=== PATIENT | female | born 1925 | race Caucasian/White ===

== ENCOUNTER → 2016-06-12 | Outpatient (CLI) | payer MEDICARE, OTHER ==
[~2016-06-12] MED LIST: ALN70T PO; ANAS1TAB7 PO; ANASTROZOLE; ARIMIDEX 1 MG; ASPI-892; ATOR10TA66 PO; ATRV10T; ATRV10T PO; B-12 INJECTION; CALTRATE 600 +1 EACH PO; CEPH500C PO; CHOL2000 PO; CYAN100053 IJ; DENO60DI SQ; DIGO125T PO; DIGO125T91 PO; ERGO400C PO; HYDR-3729 PO; HYDR-3812 PO; HYDR1TAB PO; LEVO75TA PO; LEVO75TA57; LEVO75TA57 PO; LEVO88TA54 PO; METO50TA7; MTP25TSR; POLI10TA; RIVA15TA PO; VERA120T6 PO; WRF2.5T PO; WRF5T PO; [UNRECOGNIZED DRUG - OTHER]
--- OUTSIDE RECORDS SUMMARY | 2016-06-12 10:20 | XMS REPORT | Continuity of Care Document ---
Author Author [facility] Organization [facility] Address Unknown Phone Unavailable Care Team Providers Care Pipelayer Name Role Phone CARLI JOSUE DO PCP Insurance Providers Payer Name Policy Number Subscriber Name Relationship Wps Medicare [id number] Lori Garcia 18 Self / Same As Patient [facility] [id number] Lori Garcia 20 Self / Same As Patient Advance Directives Directive Response Recorded Date/Time Advance Directives Yes 03/23/15 7:39am Health Care Power of Psychology Department Chair Y FER 03/23/15 7:39am Organ Donor No [...] Type Severity Reaction Status Last Updated piroxicam ([id number]) Allergy Mild Hives Active 05/31/07 simvastatin ([id number]) Adverse Reaction Mild Abdominal Pain Active 05/31 diltiazem ([id number]) Allergy Unknown Active 09/28/13 Immunizations No immunization [...] Discharge/Depart Date Attending Provider Discharged Recurring [facility] 11/28/15 9:53am 11:59pm NICOLE RIOS
--- NOTE | 2016-06-12 15:20 | Diagnostic Imaging Report ---
EXAM: DEXA scan. INDICATION: Screening for osteoporosis. FINDINGS: The study was compared to the prior exam of 05/18/14. The bone mineral density of the hips and spine was measured. The T score for the spine is -0.7. On the prior exam the T score was -0.8. The T score for the left hip is -2.6 and for the right hip -2.3. On the prior exam the respective T. scores were -2.7and -2.2. IMPRESSION: When compared to the previous study, there does not appear to have been any significant change. The T score for the spine remains within normal limits. 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 Dictated by: Dictated on workstation # [id number]
--- NOTE | 2016-06-12 19:23 | Diagnostic Imaging Report ---
INDICATION: Screening. 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 At this time there are no current complaints. EXAMINATION: Bilateral digital screening mammogram with CAD. The current study was also evaluated with a Computer Aided Detection (CAD) system. COMPARISON: This study was compared to the prior exams of 05/21/15, 05/18/14, 05/13/13 and 01/18/13. FINDINGS: The postsurgical changes involving the right breast, seen previously, are again evident and no different. There is no sign of recurrent malignancy on the right. The fibroglandular tissue in both breasts is heterogeneously dense. This does limit the sensitivity of this exam. When compared to the previous study, there does not appear to have been any significant change. There is no primary or secondary sign of malignancy noted. IMPRESSION: The post lumpectomy changes in the right breast are stable. There is no evidence for malignancy involving either breast. ACR BI-RADS Category 1: Negative. Result letter will be mailed to the patient. Note: At least 10% of breast cancer is not imaged by mammography. Dictated by: Dictated on workstation # [id number]
== END ==
LOC: RAD 10:17
PROVIDERS: ATTEND Nurse Practitioner Adult Health
DX: Z12.31 Encounter for screening mammogram for malignant neoplasm of breast (principal); C50.411 Malignant neoplasm of upper-outer quadrant of right female breast; M81.0 Age-related osteoporosis without current pathological fracture; N18.3 Chronic kidney disease, stage 3 (moderate)
CPT/HCPCS: 77067; 77080

== ENCOUNTER 2016-07-10 10:15 | Outpatient (RCR) | payer MEDICARE, OTHER ==
--- OUTSIDE RECORDS SUMMARY | 2016-05-29 10:37 | XMS REPORT | Continuity of Care Document ---
Author Author [facility] Organization [facility] Address Unknown Phone Unavailable Care Team Providers Care Waste Removalist Name Role Phone CARLI JOSUE DO PCP Insurance Providers Payer Name Policy Number Subscriber Name Relationship Wps Medicare [id number] Lori Garcia 18 Self / Same As Patient [facility] [id number] Lori Garcia 18 Self / Same As Patient Advance Directives Directive Response Recorded Date/Time Advance Directives Yes 03/23/15 7:39am Health Care Power of Anvil Worker Y FER 03/23/15 7:39am Organ Donor No 03/23/15 7:39am Problems Active Problems Medical Problem Onset Date Status Diarrhea Unknown Acute Generalized weakness Unknown Acute Hypovolemia Unknown Acute Laceration of finger Unknown Acute Paroxysmal atrial fibrillation Unknown Acute Syncope and collapse Unknown Acute Medications Current Home Medications Medication Dose Units Route Directions Days/Qty Instructions Start Date Cyanocobalamin (Vitamin B 12 Injecting) 1,000 Mcg/Ml 1 Ml Injection Monthly 10/31/10 Calcium Carbonate/Vitamin D3 1 Each 1 Tab Oral Twice A Day 10/31/10 Rivaroxaban 15 Mg 15 Mg Oral Bedtime 06/09/13 Digoxin 125 Mcg 125 Mcg Oral Daily 12/04/14 Cholecalciferol (Vitamin D3) 2,000 Unit 2,000 Unit Oral Daily Denosumab 60 Mg/1 Ml 60 Mg Sub-Q Twice A Year TAKE IN APRIL AND 12/04/14 Levothyroxine Sodium 75 Mcg 75 Mcg Oral Daily 03/23/15 Atorvastatin Calcium 10 Mg 10 Mg Oral Bedtime 03/23/15 Levothyroxine Sodium 88 Mcg 0 Mcg Oral Daily@0630 30 03/26/15 Past Home Medications Medication Directions Ordered Status Metoprolol Succinate 50 Mg Tab, 08/03/08 Discontinued Levothyroxine Sodium 75 Mcg Tablet, 08/03/08 Discontinued Policosanol 10 Mg Tablet, 08/03/08 Discontinued [B-12 Injection] , 08/03/08 Discontinued [Arimidex- For Cancer] 1 Gm , 08/03/08 Discontinued Acetaminophen/Hydrocodone Bitart 1 Each Tablet, 1 - 2 Each Oral Q4hr Prn 03/01 Discontinued Metoprolol Succinate (Metoprolol Er 25MG) 25 Mg Tab, 08/16/08 Discontinued Atorvastatin Calcium 10 Mg Tablet, 08/16/08 Discontinued Aspirin 81 Mg Tablet., 08/16/08 Discontinued [B12 Ing] , 08/16/08 Discontinued [Arimidex 1MG] , 08/16/08 Discontinued Verapamil Hcl 120 Mg Tablet, 1 Ea Oral Daily 01/11/10 Discontinued Warfarin Sodium 5 Mg Tablet, 1 Each Oral Daily 01/11/10 Discontinued Warfarin Sodium 2.5 Mg Tab, 2.5 Mg Oral Daily 01/11/10 Discontinued Alendronate Sodium 70 Mg Tab, 70 Mg Oral Mo@06 01/11/10 Discontinued Anastrozole 1 Mg Tablet, 1 Mg Oral Daily 10/31/10 Discontinued Digoxin 0.125 Mg Tab, 1 Each Oral Daily 10/31/10 Discontinued Atorvastatin Calcium 10 Mg Tablet, 10 Mg Oral Bedtime 10/31/10 Discontinued Levothyroxine Sodium 75 Mcg Tablet, 75 Mcg Oral Daily 10/31/10 Discontinued Warfarin Sodium 5 Mg Tablet, 1 Each Oral Daily 10/31/10 Discontinued Warfarin Sodium 2.5 Mg Tab, 2.5 Mg Oral Saturdays10/31/10 Discontinued Cholecalciferol 400 Unit Capsule, 2 Tab Oral Daily 10/31/10 Discontinued Cephalexin Monohydrate (Keflex) 500 Mg Capsule, 1 Each Oral Three Times A Day 06/09/13 Discontinued Hydrocodone/Acetaminophen 1 Each Tablet, 1 Each Oral Every 6 Hours as needed for 10 12/11/14 Discontinued Social History Social History Problem Response Recorded Date/Time Alcohol Use Denies Use 03/23/2015 7:39am Recreational Drug Use No 03/23/2015 7:39am Recent Foreign Travel SEE [place] 11/21/2015 12:09pm Sexually Transmitted Disease No 03/23/2015 7:39am Sexually Transmitted Disease No 03/23/2015 7:39am Hx Sexually Transmitted Disorders No 11/05/2010 6:58am Hospital Discharge Instructions No hospital discharge instructions. Plan of Care Prescriptions See Medication Section Functional Status No functional status results. Allergies, Adverse Reactions, Alerts Allergen Type Severity Reaction Status Last Updated piroxicam ([id number]) Allergy Mild Hives Active 05/31/07 simvastatin ([id number]) Adverse Reaction Mild Abdominal Pain Active 05/31 diltiazem ([id number]) Allergy Unknown Active 09/28/13 Immunizations No immunization records. Vital Signs No known vital signs results. Results Laboratory Results Test Name Result Units Flags Reference Collection Date/Time Result Date/ Time Comments White Blood Count 7.8 10^3/uL 4.3-11.0 11/28/2015 10:11/28/2015 10 :10am Red Blood Count 4.17 10^6/uL L 4.35-5.85 11/28/2015 10:11/28/2015 10 :10am Hemoglobin 12.9 G/DL 11.5-16.0 11/28/2015 10:11/28/2015 10:10am Hematocrit 41 % 35-52 11/28/2015 10:11/28/2015 10:10am Mean Corpuscular Volume 98 FL 80-99 11/28/2015 10:11/28/2015 10: 10am Mean Corpuscular Hemoglobin 31 PG 25-34 11/28/2015 10:11/28/2015 10:10am Mean Corpuscular Hemoglobin Concent 32 G/DL 32-36 11/28/2015 10: 10:10am Red Cell Distribution Width 14.4 % 10.0-14.5 11/28/2015 10:2015 10:10am Platelet Count 246 10^3/uL 130-400 11/28/2015 10:11/28/2015 10: 10am Mean Platelet Volume 9.7 FL 7.4-10.4 11/28/2015 10:11/28/2015 10: 10am Neutrophils (%) (Auto) 78 % H 42-75 11/28/2015 10:11/28/2015 10: 10am Lymphocytes (%) (Auto) 13 % 12-44 11/28/2015 10:0111/28/2015 10: 10am Monocytes (%) (Auto) 8 % 0-12 11/28/2015 10:0111/28/2015 10:10am Eosinophils (%) (Auto) 1 % 0-10 11/28/2015 10:0111/28/2015 10:10am Basophils (%) (Auto) 1 % 0-10 11/28/2015 10:0111/28/2015 10:10am Neutrophils # (Auto) 6.1 X 10^3 1.8-7.8 11/28/2015 10:0111/28/2015 10:10am Lymphocytes # (Auto) 1.0 X 10^3 1.0-4.0 11/28/2015 10:0111/28/2015 10:10am Monocytes # (Auto) 0.6 X 10^3 0.0-1.0 11/28/2015 10:0111/28/2015 10: 10am Eosinophils # (Auto) 0.1 10^3/uL 0.0-0.3 11/28/2015 10:0111/28/2015 10:10am Basophils # (Auto) 0.1 10^3/uL 0.0-0.1 11/28/2015 10:0111/28/2015 10 :10am Sodium Level 141 MMOL/L 135-145 11/28/2015 10:0111/28/2015 10:35am Potassium Level 4.3 MMOL/L 3.6-5.0 11/28/2015 10:0111/28/2015 10: 35am Chloride Level 107 MMOL/L 98-107 11/28/2015 10:0111/28/2015 10:35am Carbon Dioxide Level 26 MMOL/L 21-32 11/28/2015 10:0111/28/2015 10: 35am Anion Gap 8 MMOL/L 5-14 11/28/2015 10:0111/28/2015 10:35am Blood Urea Nitrogen 11 MG/DL 7-18 11/28/2015 10:0111/28/2015 10: 35am Creatinine 0.97 MG/DL 0.60-1.30 11/28/2015 10:01am 11/28/2015 10:35am BUN/Creatinine Ratio 11 11/28/2015 10:01am 11/28/2015 10:35am Estimat Glomerular Filtration Rate 54 11/28/2015 10:012015 10:35am GFR INTERPRETIVE DATA UNITS FOR ESTIMATED GFR (eGFR): mL/min/1.73 M2 REFERENCE RANGE FOR ESTIMATED GFR (eGFR) eGFR NORMAL eGFR >60 MODERATELY DECREASED eGFR 30-59 SEVERLY DECREASED eGFR 15-29 KIDNEY FAILURE <15 (OR DIALYSIS) Glucose Level 104 MG/DL 70-105 11/28/2015 10:01am 11/28/2015 10:35am Calcium Level 9.4 MG/DL 8.5-10.1 11/28/2015 10:0111/28/2015 10:35am Total Bilirubin 0.7 MG/DL 0.1-1.0 11/28/2015 10:01am 11/28/2015 10: 35am Alkaline Phosphatase 44 U/L 40-136 11/28/2015 10:01am 11/28/2015 10: 35am Aspartate Amino Transf (AST/SGOT) 14 U/L 5-34 11/28/2015 10:01am 2015 10:35am Alanine Aminotransferase (ALT/SGPT) 12 U/L 0-55 11/28/2015 10:01am 01/2016 10:35am Total Protein 6.6 G/DL 6.4-8.2 11/28/2015 10:01am 11/28/2015 10:35am Albumin 3.9 G/DL 3.2-4.5 11/28/2015 10:01am 11/28/2015 10:35am Procedures No known history of procedures. Encounters Encounter Location Arrival/Admit Date Discharge/Depart Date Attending Provider Discharged [facility] 11/28/15 9:53am 11:59pm NICOLE RIOS
[2016-05-29 11:01] LABS: BASOPHILS % (AUTO) 1 % (0-10); EOSINOPHILS # (AUTO) 0.1 10^3/uL (0.0-0.3); EOSINOPHILS % (AUTO) 1 % (0-10); LYMPHOCYTES # (AUTO) 1.1 X 10^3 (1.0-4.0); LYMPHOCYTES % (AUTO) 16 % (12-44); MEAN CORPUSCULAR HEMOGLOBIN 31 PG (25-34); MEAN CORPUSCULAR HGB CONC 32 G/DL (32-36); MEAN CORPUSCULAR VOLUME 99 FL (80-99); MEAN PLATELET VOLUME 9.7 FL (7.4-10.4); MONOCYTES # (AUTO) 0.5 X 10^3 (0.0-1.0); MONOCYTES % (AUTO) 7 % (0-12); NEUTROPHILS # (AUTO) 5.2 X 10^3 (1.8-7.8); NEUTROPHILS % (AUTO) 76 % (42-75); PLATELET COUNT 237 10^3/uL (130-400); RED BLOOD COUNT 4.17 10^6/uL (4.35-5.85); RED CELL DISTRIBUTION WIDTH 14.6 % (10.0-14.5); WHITE BLOOD COUNT 6.9 10^3/uL (4.3-11.0)
[2016-05-29 11:42] LABS: BILIRUBIN,TOTAL 0.7 MG/DL (0.1-1.0); CALCIUM 9.3 MG/DL (8.5-10.1); CREATININE SERUM 1.05 MG/DL (0.60-1.30); TOTAL PROTEIN 6.8 G/DL (6.4-8.2)
[~2016-07-10 10:15] MED LIST changes: +DENOSUMAB 60 MG/1 ML (PROLIA) CANCER CTR SQ SCH; -HYDR-3812 PO
[2016-08-22] MEDS ORDERED: CEPH500C PO (13:18)
[2016-08-23] MEDS ORDERED: HYDR-3812 PO (10:05)
== END 2016-08-27 | disposition home or self-care (01) ==
LOC: ONC 10:15
PROVIDERS: ATTEND Internal Medicine Hematology & Oncology
DX: M81.0 Age-related osteoporosis without current pathological fracture (principal); Z85.3 Personal history of malignant neoplasm of breast; I12.9 Hypertensive chronic kidney disease with stage 1 through stage 4 chronic kidney disease, or unspecified chronic kidney disease; N18.3 Chronic kidney disease, stage 3 (moderate); E03.9 Hypothyroidism, unspecified; I48.2 Chronic atrial fibrillation; Z79.01 Long term (current) use of anticoagulants; Z79.899 Other long term (current) drug therapy
CPT/HCPCS: 36415; 80053; 85025; 96372; 99213

== ENCOUNTER → 2016-07-28 | Outpatient (CLI) | payer MEDICARE, OTHER ==
[~2016-07-28] MED LIST changes: +CATHETER FLUSH 10 ML SYR IV PRN; -DENOSUMAB 60 MG/1 ML (PROLIA) CANCER CTR SQ SCH; +HYDR-3812 PO
--- NOTE | 2016-07-28 19:14 | Diagnostic Imaging Report ---
EXAMINATION: Three-phase bone scan. 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 History of prior amputations. TECHNIQUE: After the intravenous administration of 26.2 mCi of Technetium 99m MDP, flow images, blood pool and delayed bone scan images over both feet were obtained. FINDINGS: There is a triphasic moderate to severe intense increased activity in the first metatarsophalangeal joint region. It is probably involving both the base of the proximal phalanx and the head of the first metatarsal bone on the right side. No other significant abnormality seen. IMPRESSION: Triphasic intense increased uptake about the first MTP joint concerning for osteomyelitis. Correlate clinically and with foot radiographs. Dictated by: Dictated on workstation # [id number]
== END ==
LOC: CARD 11:47
PROVIDERS: ATTEND Podiatrist Foot & Ankle Surgery
DX: L97.519 Non-pressure chronic ulcer of other part of right foot with unspecified severity (principal)
CPT/HCPCS: 78315

== ENCOUNTER 2016-08-13 08:40 | Outpatient (CLI) | payer MEDICARE, OTHER ==
[~2016-08-13] VITALS: Ht 170.2 cm; Wt 54.4 kg
[~2016-08-13 08:40] MED LIST changes: -CATHETER FLUSH 10 ML SYR IV PRN; -HYDR-3812 PO
[2016-08-13 09:13] VITALS: BP 102/70
== END 2016-08-13 09:30 | disposition home or self-care (01) ==
LOC: PREOP 08:40
PROVIDERS: ATTEND Podiatrist Foot & Ankle Surgery
DX: Z01.818 Encounter for other preprocedural examination (principal); Z11.2 Encounter for screening for other bacterial diseases; M86.9 Osteomyelitis, unspecified
CPT/HCPCS: 87081

== ENCOUNTER 2016-08-22 09:40 | Day surgery (SDC) | payer MEDICARE, OTHER ==
[~2016-08-22] VITALS: Ht 170.2 cm; Wt 54.4 kg
[~2016-08-22 09:40] MED LIST changes: +LACTATED RINGERS 1,000 ML IV PRN
[2016-08-22] MEDS ORDERED: ceFAZolin 1 GM/NS 50 ML IVPB IV ONE ×2 (10:00)
[2016-08-22 10:14] VITALS: BP 117/87
[2016-08-22] MEDS ORDERED: BUPIVACAINE 0.5% 30 ML (SENSORCAINE) VIAL ONE (11:29)
[2016-08-22] MEDS ORDERED: LIDOCAINE 1% INJ 20 ML (XYLOCAINE) VIAL ONE (11:29)
[2016-08-22] MEDS ORDERED: DEXAMETHASONE PF 10 MG/ML (DECADRON) VIAL ONE (11:29)
[2016-08-22] MEDS ORDERED: LACTATED RINGERS 1,000 ML IV ONE (11:30)
[2016-08-22] MEDS ORDERED: proPOfol 200 MG/20 ML (DIPRIVAN) VIAL IV ONE (11:30)
[2016-08-22] MEDS ORDERED: SEVOFLURANE (ULTANE) 15 ML INHAL SOLN ONE (11:30)
[2016-08-22] MEDS ORDERED: fentaNYL INJECTION 100 MCG/2 ML AMP ONE (11:30)
[2016-08-22] MEDS ORDERED: LIDOCAINE PF 2% 10 ML (XYLOCAINE) AMP ONE (11:30)
[2016-08-22] MEDS ORDERED: PHENYLEPHRINE 100 MCG/ML 10 ML (ANESTHESIA) SYR ONE (12:33)
--- NOTE | 2016-08-22 13:10 | Progress Note-Pre Operative ---
Pre-Operative Progress Note H&P Reviewed The H&P was reviewed, patient examined and no changes noted. 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
[2016-08-22] MEDS ORDERED: LACTATED RINGERS 1,000 ML IV SCH (13:12)
--- NOTE | 2016-08-22 13:12 | Progress Note-Post Operative ---
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
[2016-08-22] MEDS ORDERED: ONDANSETRON 4 MG/2 ML (SDV) Z0FRAN IVP PRN ×2 (13:15→13:45)
[2016-08-22] MEDS ORDERED: CEPH500C PO (13:18)
--- NOTE | 2016-08-22 13:21 | Podiatry Progress Note ---
Standard Progress Note Progress Notes/Assess & Plan Progress/Assessment & Plan The patient is status post amputation of the right hallux and a portion of the 1st metatarsal due to osteomyelitis. She tolerated the procedure well and will be able to be discharged to home tomorrow 08/23/2016 at her convenience, resume home medications and she will be partial weight bearing right foot with a walker. She is to follow up in the office Thursday for removal of [place]pid[place] drain. Final Diagnosis Osteomyelitis, right 1st metatarsal KALEB SCHMITZ DPM August 22, 2016 1:21 pm
[2016-08-22] MEDS ORDERED: fentaNYL INJECTION 100 MCG/2 ML AMP IVP PRN (13:45)
[2016-08-22 15:00] VITALS: BP 126/82
[2016-08-22 15:50] VITALS: BP 130/87
[2016-08-22] MEDS: HYDROcodone/APAP 5 MG/325 MG (LORTAB) TAB PO PRN ×2 (17:39→21:36)
[2016-08-22 19:45] VITALS: BP 113/74
[2016-08-23] VITALS: BP 111/70
[2016-08-23 04:00] VITALS: BP 102/65
--- NOTE | 2016-08-23 04:05 | OPERATIVE REPORT ---
DATE OF SERVICE: 08/22/2016 SURGEON: Britany Schmitz DPM PREOPERATIVE DIAGNOSIS: Osteomyelitis, right first metatarsal. POSTOPERATIVE DIAGNOSIS: Osteomyelitis, right first metatarsal. PROCEDURE: Amputation of the right hallux and the distal portion of the right first metatarsal. WOUND CLASS: Contaminated. ANESTHESIA: Monitored anesthesia care. HEMOSTASIS: Pneumatic ankle tourniquet at 250 mmHg. INDICATION: This 89-year-old female presents with a chronic wound to the right first metatarsophalangeal joint. X-rays indicated osteolysis in the area of infection associated with the ulceration. The cellulitis seemed to improve but a bone scan was taken to confirm suspected osteomyelitis. There was significant amount of uptake in the area of the first metatarsal consistent with osteomyelitis. Various treatment options were discussed with the family and patient in regard to treatment for the patient. They have opted for surgical intervention after risks and complications were discussed at length. No guarantees were extended to the patient and family and they are willing to proceed. PROCEDURE: The patient was brought back to the operating table, placed in a secure supine position. Appropriate timeout was performed. A pneumatic ankle tourniquet was placed on the right lower extremity over several layers of padding. The right foot was then prepped and draped in the normal sterile manner. The right first ray was anesthetized utilizing 15 mL of 0.5% Marcaine injected in a Johnson block. The right foot was then elevated, allowed to exsanguinate; after which the tourniquet was inflated to 250 mmHg. Attention was then directed to the right first ray where a racket type incision was made with the handle medial to the first metatarsal extending distally and around the proximal phalanx of the right hallux. The incision was deepened down to bone and the first metatarsophalangeal joint was disarticulated and the hallux sent for gross and microscopic evaluation. The area of direct extension from the ulceration down to bone was identified and a rongeur taken to collect some samples of this area, sent for cultures and sensitivities. Utilizing a power sagittal saw, the distal half of the first metatarsal was cut and then sent for gross and microscope evaluation. The tourniquet was taken down allowing for evaluation of active bleeders which were then cauterized as encountered. The wound was flushed with 1000 mL of normal saline. Active bleeders were once again cauterized and closure was then performed. Deep closure was performed with 3-0 Vicryl. A stab incision was made with an 11 blade, after which a [place] drain was utilized from the dorsal aspect of the first metatarsophalangeal joint area. The incision was further sutured with 4-0 Prolene in a simple interrupted type stitch. No significant tension was appreciated to the suture site. The wound was well coapted at this point. Dressing consisted of Betadine-soaked Adaptic, sterile 4 x 4s, sterile Kerlix and fluffs surrounding the [place] drain. This was all secured with Coban. The patient was admitted for 23 hours observation per the request of her family as well as staking technician. She is able to be discharged in the morning to home. We will see the patient back in the office in approximately 3 day period of time to remove the [place] drain. Job ID: [id number] DocumentID: [id number] Dictated Date: 08/22/2016 13:26:39 Rehab Spec Date: 08/23/2016 04:04:10 Dictated By: BRITANY SCHMITZ DPM
[2016-08-23 08:52] VITALS: BP 96/52
--- NOTE | 2016-08-23 08:59 | Physical Therapy Evaluation ---
PT Evaluation-General Medical Diagnosis Admission Date 08/22/16 Onset Date: August 22, 2016 Therapy Diagnosis Therapy Diagnosis: abnormality of gait Height/Weight Height (Feet): 5 Height (Inches): 7.00 Weight (Pounds): 120 Weight (Ounces): 0.0 Precautions Precautions/Isolations: Fall Prevention, Standard Precautions Weight Bear Status Weight Bearing Restriction: Partial Weight Bearing Location Restriction: RT FOOT Referral Physician: Clare Reason for Referral: Evaluation/Treatment Medical History Pertinent Medical History: Atrial Fib, Breast CA S/P Mastectomy, CVA, Hypothroidism Social History Home: Single Level Current Living Status: Alone Entry Into Home: Stairs With Railing PT Steps Into Home: 3 Prior/Core FIM Prior Level of Function Functional [place] Measure 0=Not Assessed/NA 4=Minimal Assistance 1=Total Assistance 5=Supervision or Setup 2=Maximal Assistance 6=Modified [place] 3=Moderate Assistance 7=Complete [place] Bed Mobility: 7 Transfers (B,C,W/C) (FIM): 7 Gait: 7 Locomotion: 7 PT Evaluation-Current Subjective States that she is ready to go home. Pain Numeric Pain Scale: 5-Moderate Pain Location: Right Location Body Site: Foot Objective Patient Orientation: Person, Place, Time, Situation ROM/Strength ROM Lower Extremities WFL Strenght Lower Extremities 4/5 grossly (B) Integumentary/Posture Integumentary intact Transfers Functional [place] Measure 0=Not Assessed/NA 4=Minimal Assistance 1=Total Assistance 5=Supervision or Setup 2=Maximal Assistance 6=Modified [place] 3=Moderate Assistance 7=Complete [place] Transfers (B, C, W/C) (FIM): 5 Scootin Rollin Supine to/from Sit: 5 Sit to/from Stand: 5 Gait Gait (FIM): 1 Distance (FIM): 1=up to 49 ft Distance: 3 feet Gait Level of Assist: 5 Gait Persons Needed: 1 Gait Assistive Device: FWW Stairs If not tested on admit;explain only able to take 3 steps. Unsafe to perform steps. Balance Sitting Static: Normal Sitting Dynamic: Good Standing Static: Fair Standing Dynamic: Fair Assessment/Needs s/p (R) foot 1st metatarsal amputation. The patient is not doing well with gait and was only able to ambulate 3 feet. She will need significant assistance at home to be safe. Rehab Potential: Good PT Short Term Goals Short Term Goals Time Frame: August 30, 2016 Transfers (B,C,W/C) (FIM): 6 Gait (FIM): 6 Distance (FIM): 6=187-01 ft Gait Level of Assist: 6 Gait Assistive Device: FWW # of Steps: 3 Stairs Level of Assist: 5 PT Abrasive Grader Goals Abrasive Grader Goals PT Abrasive Grader Goals Time Frame: September 06, 2016 Transfers (B,C,W/C) (FIM): 7 Gait (FIM): 6 Gait distance (FIM): 3=150 ft Distance: 300 feet Gait Level of Assist: 7 Gait Assistive Device: FWW PT Plan Problem List Problem List: Activity Tolerance, Functional Strength, Safety, Balance, Gait, Transfer, Bed Mobility Treatment/Plan Treatment Plan: Continue Plan of Care Treatment Plan: Bed Mobility, Education, Functional Activity Haja, Functional Strength, Gait, Safety, Therapeutic Exercise, Transfers # of days/week 6x / week Visits Per Week: 11 Minutes/Day (M-F): 30 Minutes/Day (Sat/Ramos): 15 Pt/Family Agrees w/Plan: Yes Safety Risks/Education Patient Education: Gait Training, Transfer Techniques, Reviewed Precautions Teaching Recipient: Patient Teaching Methods: Demonstration Discharge Recommendations Plan Patient will be discharged to home with assistance from family. Therapy D/C Recommendations: 24 hr Supervision Equpiment Recommendations-D/C: Front Wheeled Walker, Manual Wheelchair Time/GCodes Time In: 840 Time Out: 900 Total Billed Treatment Time: 20 Total Billed Treatment 1, Evaluation of low complexity x 20' G Codes Necessary: Yes PT/OT Therapy GCodes Therapy Functional Limitation: Physical Therapy Test(s)/Tool used to determine: FIM Functional Limitation-Current Charge Code: MOBCUR Modifier: CL Functional Limitation-Goal Charge Code: MOBGOAL Modifier: MARIA ELENA BABCOCK PT August 23, 2016 08:59
[2016-08-23] MEDS ORDERED: HYDR-3812 PO (10:05)
[2016-08-23] MEDS: HYDROcodone/APAP 5 MG/325 MG (LORTAB) TAB PO PRN (11:37)
== END 2016-08-23 11:43 | disposition home or self-care (01) ==
LOC: SDC 09:40 → 4TH 13:55 → SDC 08-23 11:43
PROVIDERS: ATTEND Podiatrist Foot & Ankle Surgery
DX: M86.9 Osteomyelitis, unspecified (principal); I48.2 Chronic atrial fibrillation; I34.0 Nonrheumatic mitral (valve) insufficiency; Z79.01 Long term (current) use of anticoagulants; Z79.899 Other long term (current) drug therapy
CPT/HCPCS: 36415; 80162; 87070; 87075; 87077; 87186; 87205; 88305; 94664

== ENCOUNTER 2016-09-09 01:55 | Emergency (ER) | payer MEDICARE, OTHER ==
[~2016-09-09] VITALS: Ht 167.6 cm; Wt 53.1 kg
[~2016-09-09 01:55] MED LIST changes: +HYDR-3812 PO; -LACTATED RINGERS 1,000 ML IV PRN
[2016-09-09] MEDS ORDERED: DONE10TA12 PO (02:19)
[2016-09-09 02:33] LABS: BILIRUBIN,URINE NEGATIVE (NEGATIVE); KETONES,URINE NEGATIVE (NEGATIVE); LEUKOCYTE ESTERASE ,URINE 3+ (NEGATIVE); NITRITE,URINE POSITIVE (NEGATIVE); PH,URINE 6 (5-9); PROTEIN,URINE 1+ (NEGATIVE); UROBILINOGEN,URINE NORMAL (NORMAL)
[2016-09-09 02:48] LABS: SQUAMOUS EPITHELIAL CELL,UR 0-2 /HPF
[2016-09-09] MEDS ORDERED: RX-TRIMETH/SULFA. 160-800 MG (BACTRIM DS) TAB PPK#2 PO STA (03:13)
[2016-09-09] MEDS ORDERED: SULF1TAB35 PO (03:16)
--- NOTE | 2016-09-09 03:16 | ED General ---
General Chief Complaint: -Female Stated Complaint: CAN'T URINATE,CONSTIPATED Nursing Triage Note: pt states she can't pee and this has been going on all day. she has only been "dribbling" when she tries to pee. pt hasn't had a bm since thursday. pt also stated that when she went to wipe she noticed blood when she wiped. Nursing Sepsis Screen: No Definite Risk Source of Information: Patient (VERY LIMITED HISTORIAN--HX OF DEMENTIA), Family (DAUGHTER GIVES MOST INFORMATION, AND CHECKS ON PT 3-4 TIMES A DAY) History of Present Illness Time Seen by Provider: 02:15 Initial Comments PT ARRIVES VIA POV FROM HOME ( PT LIVES ALONE) PT STATES SHE IS UNABLE TO URINATE OR HAVE A BM STATES SHE JUST "DRIBBLES" WHEN SHE URINATES, AND TONIGHT SHE NOTICED A TINY AMOUNT OF BLOOD ON THE TISSUE WITH WIPING PT STATES SHE HAS NOT HAD A BM SINCE Thursday09/06/16--PT STATES SHE WAS CONSTIPATED BEFORE THAT, AND DRANK A COUPLE OF SMALL GLASSES OF PRUNE JUICE AND THEN HAD A BM WITHOUT ANY DIFFICULTY PT HAS NOT HAD A BM SINCE THEN, BUT HAS NOT TRIED PRUNE JUICE OR ANY THING ELSE TO STIMULATE BOWELS NO ABDOMINAL PAIN NO NAUSEA/VOMITING PT STATES SHE HAS BEEN EATING AND DRINKING VERY WELL PT SAW DR. JOSUE A WEEK AGO FOR ONGOING PROBLEMS WITH CONFUSION AND IS TO HAVE A "BRAIN SCAN" ON Thursday09/10/16 AND TO FOLLOW UP WITH HIM AFTER TEST WAS COMPLETED. PT WAS STARTED ON [facility] PT THINKS SHE HAS UTI, BUT CANNOT GIVE ANY SYMPTOMS PT RECENTLY COMPLETED LEVAQUIN 750 MG AND KEFLEX FOR FOOT INFECTION /FOOT SURGERY PCP: DR. JOSUE Allergies and Home Medications Allergies Coded Allergies: piroxicam (Unverified Allergy, Mild, Hives, 08/13/16) diltiazem (Unverified Allergy, Unknown, 08/13/16) simvastatin (Unverified Adverse Reaction, Mild, Abdominal Pain, 08/13/16) Home Medications Atorvastatin Calcium 10 Mg Tablet, 10 MG PO HS, (Reported) Calcium Carbonate/Vitamin D3 1 Each Tab.chew, 1 TAB PO BID, (Reported) Cephalexin 500 Mg Capsule, 1 CAP PO TID, #21 Ref 0 Prescribed by: KALEB SCHMITZ on 08/22/16 1318 Cholecalciferol (Vitamin D3) 2,000 Unit Capsule, 2,000 UNIT PO DAILY, (Reported) Cyanocobalamin 1,000 Mcg/Ml Vial, 1 ML IJ MONTHLY, (Reported) Denosumab 60 Mg/1 Ml Disp.syrin, 60 MG SQ TWICE A YEAR, (Reported) TAKE IN APRIL AND OCTOBER Digoxin 125 Mcg Tablet, 125 MCG PO DAILY, (Reported) Donepezil HCl 10 Mg Tablet, 10 MG PO, (Reported) Hydrocodone/Acetaminophen 1 Each Tablet, 1-2 TAB PO Q4HR PRN for PAIN-MODERATE for 30 Days, #30 Prescribed by: LUC PANIAGUA on 08/23/16 1005 Levothyroxine Sodium 75 Mcg Tablet, 75 MCG PO DAILY, (Reported) Rivaroxaban 15 Mg Tablet, 15 MG PO HS, (Reported) Sulfamethoxazole/Trimethoprim 1 Each Tablet, 1 EACH PO BID, #20 Prescribed by: PAULINE MATSON on 09/09/16 0316 Constitutional: no symptoms reported Respiratory: no symptoms reported Cardiovascular: no symptoms reported Gastrointestinal: see HPI, No abdominal pain, constipation, No diarrhea, No dysphagia, No hematemesis, No loss of appetite, No melena, No nausea, No vomiting Genitourinary: see HPI Musculoskeletal: see HPI Skin: see HPI Psychiatric/Neurological: No Symptoms Reported Hematologic/Lymphatic: No Symptoms Reported Immunological/Allergic: no symptoms reported Past Ndgpbyo-Scgbif-Vftagk Hx Patient Social History Alcohol Use: Denies Use Recreational Drug Use: No Smoking Status: Never a Smoker 2nd Hand Smoke Exposure: No Recent Foreign Travel: No Contact w/Someone Who Travel: No Recent Infectious Disease Expo: No Recent Hopitalizations: Yes (foot surgery August 22) Immunizations Up To Date Tetanus Booster (TDap): Unknown Date of Pneumonia Vaccine: Feb 18, 2015 Date of Influenza Vaccine: Jan 28, 2016 Seasonal Allergies Seasonal Allergies: No Surgeries HX Surgeries: Yes (SKIN CA, RIGHT LUMPECTOMY X2 (CA), LEFT KNEE REPLACEMENT, LEFT HIP FX, RIGHT FOOT SURGERY; GREAT TOE AND 2 OTHER TOES AMPUTATED AND BUNION SURGERY) Surgeries: Breast, Hysterectomy, Orthopedic Respiratory Hx Respiratory Disorders: Yes Respiratory Disorders: Pulmonary Embolism Cardiovascular Hx Cardiac Disorders: Yes (AFIB (RATE CONTROL MEDS), POSSIBLE HX OF DVT AND FILTER (DAUGHTER UNSURE)) Cardiac Disorders: Atrial Fibrillation, High Cholesterol Neurological Hx Neurological Disorders: Yes Neurological Disorders: Dementia Reproductive System Hx Reproductive Disorders: No Sexually Transmitted Disease: No 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 Genitourinary Hx Genitourinary Disorders: No Gastrointestinal Hx Gastrointestinal Disorders: No Musculoskeletal Hx Musculoskeletal Disorders: Yes (OSTEOMYELITIS) Musculoskeletal Disorders: Arthritis Endocrine Hx Endocrine Disorders: Yes Endocrine Disorders: Hypothyroidsim HEENT HX ENT Disorders: Yes (BILAT CATARACTS REMOVED, GLASSES, ) Loss of Vision: Bilateral Hearing Impairment: Hard of Hearing Cancer Hx Cancer: Yes Cancer: Skin, Breast Psychosocial Hx Psychiatric Problems: No Integumentary HX Skin/Integumentary Disorder: No Blood Transfusions Hx Blood Disorders: No Adverse Reaction to a Blood Tr: No (N/A) Family Medical History Family Medial History: Cardiovascular disease G8 SISTER Colon cancer G8 BROTHER FH: cancer G8 BROTHER Psychosocial problem 19 FATHER (committed suicide in his 60s) Physical Exam Vital Signs Vital Sign - Last 12Hours 09/09/16 09/09/16 02:09 03:33 Temp 97.9 Pulse 86 Resp 20 B/P (MAP) 119/81 Pulse Ox 97 O2 Delivery Room Air Capillary Refill : Less Than 3 Seconds General Appearance: No Apparent Distress, WD/WN Respiratory: Normal Breath Sounds, No Accessory Muscle Use, No Respiratory Distress Cardiovascular: No Edema, No Murmur, Irregularly Irregular Gastrointestinal: Normal Bowel Sounds, No Organomegaly, No Pulsatile Mass, Non Tender, Soft Back: No CVA Tenderness Extremity: Normal Inspection Neurologic/Psychiatric: Alert, Oriented x3 (BUT POOR MEMORY), No Motor/ Sensory Deficits, Normal Mood/Affect, driller's assistant II-XII Norm as Tested Progress/Results/Core Measures Results/Orders Lab Results My Orders Vital Signs/I&O Blood Pressure Mean: 94 Progress Note : Progress Note PT VOIDED X 2 DURING ER STAY, AND ONLY HAD 6 ML RESIDUAL URINE IN BLADDER ON BLADDER SCAN PT HAD NO SYMPTOMS DURING ER STAY PT AND DAUGHTER COMFORTABLE GOING HOME Diagnostic Imaging Comments ABDOMEN XRAYS--NO ACUTE PROCESS, NO OBSTRUCTION OR IMPACTION-PENDING RADIOLOGIST REVIEW Reviewed: Reviewed by Me Departure Impression Impression: Primary Impression: Urinary tract infection Additional Impression: Constipation Disposition: 01 HOME, SELF-CARE Condition: Stable Departure-Patient Inst. Referrals: CARLI JOSUE DO (PCP/Family) Primary Care Physician Patient Instructions: Constipation, Adult (DC), High Fiber Diet, Urinary Tract Infection, Adult (DC) Add. Discharge Instructions: INCREASE YOUR WATER AND FIBER INTAKE TAKE MIRALAX DAILY TO REGULATE YOUR BOWELS FOLLOW UP WITH YOUR DR IN 3-4 DAYS FOR RECEHCK All discharge instructions reviewed with patient and/or family. Voiced understanding. Scripts Sulfamethoxazole/Trimethoprim (Bactrim Ds Tablet) 1 Each Tablet 1 EACH PO BID, #20 TAB Prov: PAULINE MATSON DO 09/09/16 PAULINE MATSON DO September 09, 2016 03:16
[2016-09-09 03:33] VITALS: BP 119/81
--- NOTE | 2016-09-09 06:37 | Diagnostic Imaging Report ---
EXAMINATION: Abdomen at 3:01 AM INDICATION: Abdominal pain Supine and erect views of the abdomen were obtained. There is gas in both the large and small bowel in a nonspecific fashion. This appearance is similar to the prior exam of 06/10/11. There is no sign of a bowel obstruction. As noted on the prior exam, the liver shadow is prominent. There is no mass identified. Several phleboliths are again evident low in the pelvis. 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 Specifically, there is now considerable bony overgrowth of the bridging osteophyte on the right at L1-2 and L2-3. There is no fracture or acute bony abnormality identified. IMPRESSION: 1. The bowel gas pattern is nonspecific. There is no acute abnormality identified. 2. 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 Dictated by: Dictated on workstation # [id number]
== END 2016-09-09 03:33 | disposition home or self-care (01) ==
LOC: EDUNIT# 01:55 → ER 02:05
DX: N30.01 Acute cystitis with hematuria (principal); K59.00 Constipation, unspecified; M47.816 Spondylosis without myelopathy or radiculopathy, lumbar region; Z79.899 Other long term (current) drug therapy
CPT/HCPCS: 74020; 81000; 87077; 87088; 87186; 99285

== ENCOUNTER → 2016-09-10 | Outpatient (CLI) | payer MEDICARE, OTHER ==
[~2016-09-10] MED LIST changes: +DONE10TA12 PO; +SULF1TAB35 PO
--- NOTE | 2016-09-10 13:31 | Diagnostic Imaging Report ---
PROCEDURE: CT head without contrast. TECHNIQUE: Multiple contiguous axial images were obtained through the brain without the use of intravenous contrast. INDICATION: Memory loss. FINDINGS: There is no intracranial hemorrhage, edema or mass effect. Periventricular and deep white matter hypodensities are seen compatible with chronic microvascular ischemic changes. 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 No hydrocephalus. No extra-axial fluid collections seen. The calvarium, the orbits and the paranasal sinuses visualized portions appear grossly unremarkable. IMPRESSION: No intracranial hemorrhage. Dictated by: Dictated on workstation # [id number]
== END ==
LOC: RAD 12:59
PROVIDERS: ATTEND Internal Medicine
DX: F03.90 Unspecified dementia, unspecified severity, without behavioral disturbance, psychotic disturbance, mood disturbance, and anxiety (principal)
CPT/HCPCS: 70450

== ENCOUNTER 2017-01-08 10:58 | Outpatient (RCR) | payer MEDICARE, OTHER ==
[~2017-01-08 10:58] MED LIST changes: +DENOSUMAB 60 MG/1 ML (PROLIA) CANCER CTR SQ SCH
[2017-01-08 11:19] LABS: BASOPHILS # (AUTO) 0.1 10^3/uL (0.0-0.1); BASOPHILS % (AUTO) 1 % (0-10); EOSINOPHILS # (AUTO) 0.1 10^3/uL (0.0-0.3); EOSINOPHILS % (AUTO) 1 % (0-10); LYMPHOCYTES # (AUTO) 1.3 X 10^3 (1.0-4.0); LYMPHOCYTES % (AUTO) 21 % (12-44); MEAN CORPUSCULAR HEMOGLOBIN 31 PG (25-34); MEAN CORPUSCULAR HGB CONC 32 G/DL (32-36); MEAN CORPUSCULAR VOLUME 97 FL (80-99); MEAN PLATELET VOLUME 9.4 FL (7.4-10.4); MONOCYTES # (AUTO) 0.6 X 10^3 (0.0-1.0); MONOCYTES % (AUTO) 10 % (0-12); NEUTROPHILS % (AUTO) 66 % (42-75); PLATELET COUNT 254 10^3/uL (130-400); RED BLOOD COUNT 4.36 10^6/uL (4.35-5.85); RED CELL DISTRIBUTION WIDTH 14.8 % (10.0-14.5)
[2017-01-08 12:21] LABS: ALANINE AMINOTRANSFERASE 29 U/L (0-55); ALBUMIN 3.8 GM/DL (3.2-4.5); ANION GAP 9 MMOL/L (5-14); ASPARTATE AMINO TRANSFERASE 23 U/L (5-34); BILIRUBIN,TOTAL 0.7 MG/DL (0.1-1.0); BLOOD UREA NITROGEN 14 MG/DL (7-18); BUN/CREATININE RATIO 16; CALCIUM 9.9 MG/DL (8.5-10.1); CARBON DIOXIDE 27 MMOL/L (21-32); CHLORIDE 104 MMOL/L (98-107); CREATININE SERUM 0.87 MG/DL (0.60-1.30); GFR ESTIMATED > 60; GLUCOSE 82 MG/DL (70-105); POTASSIUM 4.3 MMOL/L (3.6-5.0); SODIUM 140 MMOL/L (135-145)
== END 2017-01-17 | disposition home or self-care (01) ==
LOC: ONC 10:58
PROVIDERS: ATTEND Internal Medicine Hematology & Oncology
DX: M81.0 Age-related osteoporosis without current pathological fracture (principal); Z85.3 Personal history of malignant neoplasm of breast; I12.9 Hypertensive chronic kidney disease with stage 1 through stage 4 chronic kidney disease, or unspecified chronic kidney disease; N18.3 Chronic kidney disease, stage 3 (moderate); E03.9 Hypothyroidism, unspecified; I48.2 Chronic atrial fibrillation; Z79.01 Long term (current) use of anticoagulants; Z79.899 Other long term (current) drug therapy
CPT/HCPCS: 80053; 85025; 99213

== ENCOUNTER → 2017-01-08 | Outpatient (CLI) | payer MEDICARE, OTHER | LOC: LAB 11:15 | PROVIDERS: ATTEND Internal Medicine | DX: E03.9 Hypothyroidism, unspecified (principal) | CPT/HCPCS: 36415; 84443 ==

== ENCOUNTER 2017-03-05 09:20 | Outpatient (RCR) | payer MEDICARE, OTHER ==
[~2017-03-05 09:20] MED LIST changes: +ACHD5005 PO; -HYDR-3812 PO
== END 2017-06-03 | disposition home or self-care (01) ==
LOC: ONC 09:20
PROVIDERS: ATTEND Internal Medicine Hematology & Oncology
DX: M81.0 Age-related osteoporosis without current pathological fracture (principal); Z85.3 Personal history of malignant neoplasm of breast; I12.9 Hypertensive chronic kidney disease with stage 1 through stage 4 chronic kidney disease, or unspecified chronic kidney disease; N18.3 Chronic kidney disease, stage 3 (moderate); E03.9 Hypothyroidism, unspecified; I48.2 Chronic atrial fibrillation; Z79.01 Long term (current) use of anticoagulants; Z79.899 Other long term (current) drug therapy
CPT/HCPCS: 96372